=== PATIENT | male | born 1975 | race Two or more races ===

== ENCOUNTER 2022-08-13 12:14 | Emergency (ER) | payer OTHER ==
[~2022-08-13] VITALS: Ht 175.3 cm; Wt 99.8 kg
[2022-08-13] MEDS ORDERED: BACTRIM DS TAB1 EACH PO (16:55)
== END 2022-08-13 17:00 | disposition home or self-care (01) ==
LOC: ER 12:14
DX: S01.81XA Laceration without foreign body of other part of head, initial encounter (principal); W18.39XA Other fall on same level, initial encounter; Y93.89 Activity, other specified; Y92.89 Other specified places as the place of occurrence of the external cause; Y99.9 Unspecified external cause status